=== PATIENT | male | born 1985 | race Caucasian/White ===

== ENCOUNTER 2018-01-09 17:28 | Emergency (ER) | payer MEDICAID, SELFPAY ==
[2018-01-09 17:29] VITALS: BP 163/103; PULSE 100; RESP 16; TEMP 36.5; O2SAT 100; BMI 26.6
--- NOTE | 2018-01-09 18:28 | ED.VISSUMM ---
- ER Visit Summary Date of Service: 01/09/18 Chief Complaint: Abscess History of Present Illness: The patient is a 32 M with history of MRSA presents of abscess. Patient states that about a week and half ago, he got a cut on the dorsum of his right hand. He states that it swelled up. He went to an urgent care and had the area lanced. He states a few days after that, he got another area on his left forearm. That was lanced. He was placed on Bactrim and Keflex. He states that the redness has significantly improved, but over the past few days, has developed a few more red spots on his arm. He has an area on his right forearm that is now spongy. He also has an area of induration in his right bicep. He denies any fevers but does admit to chills last night. He denies any weight loss, night sweats, vomiting, other systemic symptoms. He denies any history of IV drug abuse. He denies any history of immunosuppression. The patient has had MRSA in the past. Physical Examination: Vital signs reviewed General: Well-nourished, well-developed Head: Normocephalic, atraumatic Eyes: Pupils equal and reactive, extraocular muscles intact Neck, supple, no lymphadenopathy Heart: Regular rate and rhythm Respiratory: No distress, clear bilaterally Abdomen: Soft, nontender, nondistended, no peritoneal signs Back: Nontender Extremities: Left forearm has healing area of prior incision and drainage with no cellulitis. Right arm has old area of abscess on the dorsum of the right hand that is almost completely healed. He has a focal area of fluctuance in the mid forearm. There is also a 3 cm ovoid area of cellulitis and induration in the right bicep. There is no central fluctuance. There is no streaking. Pulses are normal. Skin: Normal color no rash Neuro: Alert and oriented, no focal or lateralizing deficits Test Results: [] Emergency Department Course and Treatment: The patient did have a few small areas of cellulitis that were concerning for early abscess, but there was no fluctuance. His one area of fluctuance was sterilely prepped. It was anesthetized with lidocaine locally. It was incised and purulence was able to be expressed. This was cultured. Packing was placed. I am going to place the patient on doxycycline. He really has no other systemic symptoms. I do not feel that he has bloodstream infection. There is no lymphangitic streak. I did spend time counseling the patient that if the one especially on his right bicep increases in size, become spongy, or changes he needs to return if this will likely need incised at that time. He is comfortable with this plan of care. I also counseled him that if he has fevers, chills, or any other systemic symptoms he needs to return. The patient will be discharged home. Treatment Plan: [] Disposition: Discharge Impression: 1. Abscess right forearm with incision and drainage This note was generated with [employer] dictation software. It may contain incorrect words, spelling, and punctuation that were not noted in review of the chart prior to signing ED Disposition - Plan for ED Patient: Disposition: Home or Assisted Living Chief Complaint: Wound Check Instructions: ED Abscess IandD Prescriptions: Doxycycline Hyclate 1 tab PO BID #20 cap Referrals: Ej Brown [Primary Care Provider] - Additional Instructions: Remove the packing in 48 hours. If the area of redness on the right bicep becomes larger or more spongy, return as this will likely need incised. Take the antibiotics for the full course even if he started to feel better. If you have fevers or other change in symptoms to return for reevaluation.
[2018-01-09] MEDS: Doxycycline 100 MG CAPSULE PO (18:37)
== END 2018-01-09 18:53 | disposition home or self-care (01) ==
LOC: ED 18:52
PROVIDERS: Emergency Provider Emergency Medicine; Family Provider Family Medicine; PCP Family Medicine
DX: L02.413 Cutaneous abscess of right upper limb (principal); Z86.14 Personal history of Methicillin resistant Staphylococcus aureus infection; Z79.2 Long term (current) use of antibiotics
CPT/HCPCS: 10060; 87070; 87205; 99284